=== PATIENT | female | born 1985 | race Caucasian/White ===

== ENCOUNTER 2021-01-25 12:39 | Emergency (ER) | payer OTHER, SELFPAY ==
[2021-01-25 12:40] VITALS: BP 119/67; PULSE 74; RESP 16; TEMP 37.1; O2SAT 100; BMI 27.3
[2021-01-25 12:48] VITALS: BP 119/67; PULSE 74; RESP 16; TEMP 37.1; O2SAT 100; BMI 27.4
[2021-01-25 13:29] VITALS: BP 119/67; PULSE 74; RESP 16; TEMP 37.1; O2SAT 100
--- NOTE | 2021-01-25 13:33 | HMH.EDUTC ---
[facility] – [place] Disposition Clinical Impression: Laceration Disposition: Home, Self-Care Condition on Discharge: Good Instructions: DI for Laceration Repair, DI for Laceration Repair -- Simple Additional Instructions: Suture instructions: You have required stitches today. Please read the following instructions so you know how to care for them: 1. Keep wound area dry for the first 24 hours. 2 May clean gently with mild soap and water, after 48 hours to prevent crusting over suture knots. 3. You may shower if your provider gives permission but do not take a bath until the skin is healed.. 4. Never leave a wet dressing or Band-Aid on your stitches as this allows bacteria to reach the area and may cause infection. Band-aids can cause the wound to sweat and not recommended to wear for long periods of time Watch for signs of infection: Increasing redness, tenderness or warmth around the suture site Unusual swelling around the site Appearance of pus around each suture or any red streaks Fever If you develop any of the above signs or symptoms of infection, Follow up with Family Physician immediately 5. Suture removal in _10-12___days 6. Return to [facility] or follow up with family doctor for removal. This can be done by any medical provider during regular hours on Saturday through Saturday, by appointment. Referrals: Lise Hathaway [Primary Care Provider] - As needed Time of Disposition: 13:34 Medical Decision Making - Sam Inquiry Pt receiving controlled substance: No Sam was queried for this patient: No Vital Signs: 01/25/21 12:40 01/25/21 12:48 01/25/21 13:29 Temperature 98.8 F 98.8 F 98.8 F Temperature Source Oral Oral Pulse Rate 74 Pulse Rate [Left Radial] 74 74 Respiratory Rate 16 16 16 Blood Pressure 119/67 Blood Pressure [Left Arm] 119/67 119/67 Blood Pressure Mean [Left Arm] 84 84 Blood Pressure Source [Left Arm] Automatic Cuff Automatic Cuff Blood Pressure Position [Left Arm] Sitting Sitting 02 Sat by Pulse Oximetry 100 100 Oxygen Delivery Method Room Air Room Air Medical Decision Narrative: wound irrigated well with saline and hibacleanse, wound edges approximated well [facility] [place] HPI - General Stated complaint: laceration of right hand finger Time Seen by Provider: 01/25/21 13:00 Mode of Arrival: Ambulatory Source of Information: Patient Limitations: No Limitations Description of Symptoms (Recalled from Triage Doc. by RN): laceration to R index finger, pt reports she cut it on glass approx 3 hours ago, states has had difficulty getting area to stop bleeding. - History of Present Illness Provider Complaint: Patient states that she was picking up a glass bottle from her yard when it busted in her hand causing laceration to her right index finger in the pad of the finger States that she was having a hard time controlling the bleeding so she came in unsure if it may need stitches or not - Related Data Home Medications Medication Instructions Recorded Confirmed montelukast 10 mg tablet 10 mg PO DAILY tab 12/30/20 01/25/21 sertraline 50 mg tablet 50 mg PO DAILY tab 12/30/20 01/25/21 Allergies Allergy/AdvReac Type Severity Reaction Status Date / Time Sulfa (Sulfonamide Allergy Severe tounge Verified 12/30/20 16:06 Antibiotics) swelling sulfamethoxazole Allergy Severe swelling Verified 12/30/20 16:06 [From Bactrim] trimethoprim [From Bactrim] Allergy Severe swelling Verified 12/30/20 16:06 - Worker's Comp Is this a Worker's Comp case?: No [facility] History - Hepatitis A Screen Drug use history?: No High risk sexual behaviors?: No History of sexually transmitted infection?: No Currently employed?: No Childcare worker?: No Do you have indoor plumbing?: Yes Do you have electricity?: Yes Attestation statement:: This patient has been screened for Hepatitis A risk factors. I have reviewed the patient's past medical history: Yes Medical History: Reports:: Depression Other Surger
== END 2021-01-25 13:45 | disposition home or self-care (01) ==
PROVIDERS: Emergency Provider Nurse Practitioner; PCP Physician Assistant
DX: S61.210A Laceration without foreign body of right index finger without damage to nail, initial encounter (principal); W25.XXXA Contact with sharp glass, initial encounter; Y92.017 Garden or yard in single-family (private) house as the place of occurrence of the external cause; F33.1 Major depressive disorder, recurrent, moderate
CPT/HCPCS: 12001; 99202; G0463

== ENCOUNTER 2021-04-02 10:32 | Outpatient (CLI) | payer OTHER, SELFPAY ==
[2021-04-02] VITALS (8 sets, daily range): BP systolic 101–123; BP diastolic 63–87; PULSE 63–83; RESP 16; TEMP 37.3; O2SAT 96–98
== END 2021-04-02 12:50 | disposition home or self-care (01) ==
PROVIDERS: PCP Family Medicine; Visit Provider Family Medicine
DX: U07.1 COVID-19 (principal)
CPT/HCPCS: 96365

== ENCOUNTER 2021-04-13 18:54 | Emergency (ER) | payer OTHER, SELFPAY ==
[2021-04-13 18:56] VITALS: BP 128/81; PULSE 75; RESP 16; TEMP 36.8; O2SAT 100; BMI 28.0
--- NOTE | 2021-04-13 20:14 | XR_ITS ---
PROCEDURE INFORMATION: Exam: XR Left Hand Exam date and time: 04/13/2021 8:14 PM Age: 36 years old Clinical indication: Injury or trauma; Other: Injured left 5th (pinky) finger while walking dog. ; Blunt trauma (contusions or hematomas); Little finger; Patient HX: Injured left 5th (pinky finger while walking dog. Patient tried to remove rings using soap and cold water and was unsuccessful. ; Additional info: Pain TECHNIQUE: Imaging protocol: XR Left hand. Views: 3 or more views. COMPARISON: No relevant prior studies available. FINDINGS: Bones/joints: Mildly comminuted fracture of the distal aspect of the middle phalanx of the 5th ray which is diastased up to 2 mm and may extend to the articular surface. Soft tissues: Normal. IMPRESSION: Mildly comminuted fracture of the distal aspect of the middle phalanx of the 5th ray which is diastased up to 2 mm and may extend to the articular surface.
[2021-04-13 20:16] VITALS: PULSE 75; RESP 16; TEMP 36.8; O2SAT 100; BMI 27.9
--- NOTE | 2021-04-13 20:49 | HMH.EDUTC ---
[facility] [place] Impression: Finger fracture Qualifiers: Encounter type: initial encounter Finger: little finger Fracture type: closed Phalanx: unspecified phalanx Fracture alignment: displaced Laterality: left Qualified Code(s): S62.607A - Fracture of unspecified phalanx of left little finger, initial encounter for closed fracture Disposition: Home, Self-Care Condition on Discharge: Good Instructions: DI for Finger Fracture, How To Perform RICE (Rest, Ice, Compress, Elevate) Additional Instructions: *RICE, Rest the extremity, Ice 15-20 minutes 3-4 times daily, Compress- wear the ankit wrap as discussed as much as possible to help reduce swelling and pain, Elevate the extremity when at rest *Ankit wrap is for support and help control swelling, use it except in the shower. Be sure that is not to tight but not to loose either *Elevate when resting *Ibuprofen every 6-8 hours as needed for pain an inflammation. If need something more can take Tylenol in between doses of Ibuprofen to help Immediately follow up with your family doctor for new or worsening of symptoms, or no noticeable improvement over the next 3-[address] Jeronimo office in the morning at 10am Referrals: Antwan Gonzales [Primary Care Provider] - As needed Delmer Jeronimo MD [Staff Physician] - (Call the office tomorrow at 10am) Time of Disposition: 21:07 Medical Decision Making - Sam Inquiry Pt receiving controlled substance: No Sam was queried for this patient: No Vital Signs: 04/13/21 18:56 04/13/21 20:16 04/13/21 21:15 Temperature 98.2 F 98.2 F 0 F L Temperature Source Oral Oral Pulse Rate 0 L Pulse Rate [Left Radial] 75 75 Respiratory Rate 16 16 0 L Blood Pressure 0/0 L Blood Pressure [Left Arm] 128/81 Blood Pressure Mean [Left Arm] 96 Blood Pressure Source [Left Arm] Automatic Cuff Blood Pressure Position [Left Arm] Sitting 02 Sat by Pulse Oximetry 100 100 Oxygen Delivery Method Room Air Orders (Tests/Meds): ED MEDICATIONS Discontinued Medications Generic Name Dose Route Start Last Admin Trade Name Freq PRN Reason Stop Dose Admin Ibuprofen 400 mg 04/13/21 20:55 04/13/21 20:57 Ibuprofen 400 Mg Tablet PO 04/13/21 20:56 400 mg ONCE ONE Administration - Radiology Data #1 Image(s): Hand Image Reviewed: Yes I have reviewed radiologist's interpretation IMPRESSION: Mildly comminuted fracture of the distal aspect of the middle phalanx of the 5th ray which is diastased up to 2 mm and may extend to the articular surface. - Physician Consults Physician Consulted: Dr Jeronimo Time: 21:02 Reason -: Orthopedic Eval/Care Comment/Response: Spoke with Dr Jeronimo and he viewed xray and advised to place her in finger splint and have her call the office tomorrow at 10 am Medical Decision Narrative: Patient holding hand in cupping position initially upon exam with rings on ring finger, rings removed Upon placing finger splint patient able to lay hand out flat on table Finger with out difficulty splint placed and secured with [place]an and finger splint patient able to move finger and good cap refill before and after placement denies numbness [facility] [place] - General Stated complaint: [id number] inj to little finger left hand Time Seen by Provider: 04/13/21 20:49 Mode of Arrival: Ambulatory Source of Information: Patient Limitations: No Limitations Description of Symptoms (Recalled from Triage Doc. by RN): pt was holding onto a dog harness and it pulled so that her L pinkie is bent and curled up. pt is unable to flatten her hand out. HEENT Symptoms (Recalled from RN notes): No Resp Symptoms (Recalled from RN notes): No Skin Symptoms (Recalled from RN notes): No MS Symptoms (Recalled from RN notes): Yes (L little finger pain) Functional Status (Recalled from RN notes): na - History of Present Illness Provider Complaint: Patient states that she was opening her door and her dog tried to run in the house and s
[2021-04-13 21:15] VITALS: BP 0/0; PULSE 0; RESP 0; TEMP -17.7; TEMP 0
== END 2021-04-13 21:17 | disposition home or self-care (01) ==
PROVIDERS: Emergency Provider Nurse Practitioner; PCP Family Medicine
DX: S62.607A Fracture of unspecified phalanx of left little finger, initial encounter for closed fracture (principal); Z88.2 Allergy status to sulfonamides
CPT/HCPCS: 73130; 99202; G0463

== ENCOUNTER → 2021-04-14 14:08 | Outpatient (CLI) | payer OTHER, SELFPAY ==
--- NOTE | 2021-04-14 14:12 | XR_ITS ---
PROCEDURE: XR FINGER LT MIN 2V CLINICAL INDICATION: LEFT SMALL DIGIT FX; remove splint COMPARISON: CR XR HAND LT MIN 3V from 04/13/2021 FINDINGS: Nondisplaced fracture involves the distal shaft of the middle phalanx of the 5th finger with good alignment. Previously noted diastasis of the fracture fragment is less apparent with good alignment on the lateral view. The joint spaces are well-preserved. No significant degenerative/arthritic changes. No erosive changes evident. Other findings:None. IMPRESSION: Good alignment middle phalanx fracture of the 5th finger Dictated by: Kieran Walker MD 04/14/2021 14:31 Kieran Walker MD in [place] 04/14/2021 14:31
== END ==
PROVIDERS: PCP Family Medicine; Visit Provider Orthopaedic Surgery
DX: S62.657A Nondisplaced fracture of middle phalanx of left little finger, initial encounter for closed fracture (principal)
CPT/HCPCS: 73140

== ENCOUNTER → 2021-07-18 15:17 | Outpatient (POV) | payer OTHER, SELFPAY | PROVIDERS: Visit Provider Dermatology | DX: Z00.00 Encounter for general adult medical examination without abnormal findings (principal) ==

== ENCOUNTER → 2021-09-19 09:10 | Outpatient (POV) | payer OTHER, SELFPAY | PROVIDERS: Visit Provider Dermatology | DX: Z00.00 Encounter for general adult medical examination without abnormal findings (principal) ==

== ENCOUNTER 2021-11-14 19:35 | Emergency (ER) | payer OTHER, SELFPAY ==
[2021-11-14 20:30] VITALS: BP 129/81; PULSE 76; RESP 18; TEMP 36.7; O2SAT 99; BMI 29.7
[2021-11-14 20:49] LABS: Strep Scrn Group A (Rapid) Negative (Negative)
--- NOTE | 2021-11-14 21:09 | HMH.EDUTC ---
[facility] [place] Clinical Impression: Pharyngitis Qualifiers: Pharyngitis/tonsillitis etiology: unspecified etiology Qualified Code(s): J02.9 - Acute pharyngitis, unspecified Left otitis media Qualifiers: Otitis media type: suppurative Chronicity: acute Recurrence: non-recurrent Spontaneous tympanic membrane rupture: without spontaneous rupture Qualified Code(s): H66.002 - Acute suppurative otitis media without spontaneous rupture of ear drum, left ear Disposition: Home, Self-Care Condition on Discharge: Good Instructions: Sore Throat, DI for Pharyngitis/Tonsillopharyngitis -- Adult Additional Instructions: Take the medications as directed. Follow up with your regular doctor. GO TO THE ER FOR ANY WORSENING SYMPTOMS Prescriptions: Pseudoephedrine HCl 30 mg PO Q6HP PRN #30 tab PRN Reason: Congestion Transmission Status: Received by [id number] methylPREDNISolone [Medrol] 4 mg PO DIRECTED 6 Days #21 packet Transmission Status: Received by [id number] Azithromycin [Z-Eric 250mg Tab*] 250 mg PO UD DOSE PK #6 tab Transmission Status: Received by [id number] Referrals: Antwan Gonzales [Primary Care Provider] - Time of Disposition: 21:17 Medical Decision Making - Medical Records Medical records reviewed: No: I reviewed the patient's medical records. - Sam Inquiry Pt receiving controlled substance: No Vital Signs: 11/14/21 20:30 11/14/21 21:18 Temperature 98.0 F 98.0 F Temperature Source Oral Pulse Rate 76 Pulse Rate [Left Radial] 76 Respiratory Rate 18 18 Blood Pressure 129/81 Blood Pressure [Right Arm] 129/81 Blood Pressure Mean [Right Arm] 97 02 Sat by Pulse Oximetry 99 - Lab Data Lab results reviewed: Yes: I reviewed the patient's lab results. Lab Results 11/14/21 20:28: Group A Strep Rapid Negative Orders (Tests/Meds): ORDERS Category Date Time Status Strep Screen Confirmation Stat Micro 11/14/21 20:28 Received [facility] [place] - General Stated complaint: sore throat, L ear ache,cough Time Seen by Provider: 11/14/21 21:09 Mode of Arrival: Ambulatory HEENT Symptoms (Recalled from RN notes): Yes Resp Symptoms (Recalled from RN notes): Yes Skin Symptoms (Recalled from RN notes): No MS Symptoms (Recalled from RN notes): No Functional Status (Recalled from RN notes): wnl - History of Present Illness Provider Complaint: She c/o sore throat and left ear pain for the past 3 days. She had influenza around 2 weeks ago and she got better from that, but her ear continued to hurt. Then she started having the sore throat 3 days ago. - Related Data Home Medications Medication Instructions Recorded Confirmed montelukast 10 mg tablet 10 mg PO DAILY tab 12/30/20 04/14/21 cetirizine 10 mg capsule 10 mg PO DAILY PRN 09/07/21 09/07/21 triamcinolone acetonide 55 mcg 1 spray INTRANASAL DAILY 09/07/21 09/07/21 nasal spray aerosol Previous Rx's Medication Instructions Recorded Azithromycin [Z-Eric 250mg Tab*] 250 mg PO UD DOSE PK #6 tab 11/14/21 Pseudoephedrine HCl 30 mg PO Q6HP PRN #30 tab 11/14/21 methylPREDNISolone [Medrol] 4 mg PO DIRECTED 6 Days #21 11/14/21 packet Allergies Allergy/AdvReac Type Severity Reaction Status Date / Time Sulfa (Sulfonamide Allergy Severe tounge Verified 11/14/21 20:35 Antibiotics) swelling sulfamethoxazole Allergy Severe swelling Verified 11/14/21 20:35 [From Bactrim] trimethoprim [From Bactrim] Allergy Severe swelling Verified 11/14/21 20:35 - Worker's Comp Is this a Worker's Comp case?: No Is this an [facility] Worker's Comp?: No Is this a [place] Worker's Comp?: No H History - Hepatitis A Screen Drug use history?: No High risk sexual behaviors?: No History of sexually transmitted infection?: No Currently employed?: No Childcare worker?: No Do you have indoor plumbing?: Yes Do you have electricity?: Yes Attestation statement:: This patient has been screened for Hepatiti
[2021-11-14 21:18] VITALS: BP 129/81; PULSE 76; RESP 18; TEMP 36.7
== END 2021-11-14 21:22 | disposition home or self-care (01) ==
PROVIDERS: Emergency Provider Nurse Practitioner Family; PCP Family Medicine
DX: H66.002 Acute suppurative otitis media without spontaneous rupture of ear drum, left ear (principal); J02.9 Acute pharyngitis, unspecified; F33.1 Major depressive disorder, recurrent, moderate; Z88.2 Allergy status to sulfonamides; Z79.899 Other long term (current) drug therapy
CPT/HCPCS: 87430; 99212; G0463

== ENCOUNTER 2024-07-26 10:10 | Emergency (ER) | payer OTHER, SELFPAY ==
--- NOTE | 2024-07-26 10:49 | ED_ITS ---
Discharge Plan Disposition Patient Disposition: Home, Self-Care Condition: Good Prescriptions Prescriptions: New oseltamivir [Tamiflu] 75 mg capsule 75 mg PO BID 5 Days Qty: 10 0RF [id number] [Bromfed DM] 2-30-10 mg/5 mL Syrup 5 ml PO Q6H PRN (Reason: Cough) Qty: 240 0RF ondansetron 4 mg Tablet,Disintegrating 4 mg PO Q8H PRN (Reason: Nausea) Qty: 12 0RF No Action montelukast 10 mg tablet 10 mg PO DAILY Zyrtec 10 mg capsule 10 mg PO DAILY PRN triamcinolone acetonide [Nasacort Allergy] 55 mcg aerosol,spray 1 spray INTRANASAL DAILY Rx Instructions: administer into each nostril azithromycin 250 MG tablet 250 mg PO UD DOSE PK Qty: 6 0RF Rx Instructions: Take two (2) tablets today, then one (1) tablet days #2 thru #5 pseudoephedrine HCl 30 MG tablet 30 mg PO Q6HP PRN (Reason: Congestion) Qty: 30 0RF methylprednisolone 4 MG tablets,dose pack 4 mg PO DIRECTED 6 Days Qty: 21 0RF Referrals Follow up/Referrals: Antwan Gonzales [Primary Care Provider] - See instructions Activity Restrictions/Add. Instructions Additional Instructions/Restrictions: Drink plenty of fluids. Take tylenol or ibuprofen for pain or fever. Take the medications as directed. Follow up with your regular doctor. GO TO THE ER FOR ANY WORSENING SYMPTOMS Clinical Impressions Clinical Impression: Influenza A Instructions Patient Instructions: DI for H1N1 Influenza -- Adult, Influenza, Oseltamivir, Ondansetron Print Language Print Language: Yi Discharge ED Provider: Yuniel Maurer [facility] General Stated complaint: flu exposure cough ba fever Time Seen by Provider: 07/26/24 10:49 Related Data Home Medications ?Medication ?Instructions ?Recorded ?Confirmed montelukast 10 mg tablet 10 mg PO DAILY Allergy symptoms 12/30/20 04/14/21 cetirizine 10 mg capsule (Zyrtec) 10 mg PO DAILY PRN 09/07/21 09/07/21 triamcinolone acetonide 55 mcg 1 spray intranasal DAILY 09/07/21 09/07/21 nasal spray aerosol (Nasacort Allergy) Previous Rx's ?Medication ?Instructions ?Recorded azithromycin 250 mg tablet 250 mg PO UD DOSE PK #6 tabs 11/14/21 methylprednisolone 4 mg tablets in 4 mg PO DIRECTED 6 days #21 11/14/21 a dose pack packets pseudoephedrine HCl 30 mg tablet 30 mg PO Q6HP PRN Congestion #30 11/14/21 tabs [id number] 5 ml PO Q6H PRN Cough #240 mL 07/26/24 2 mg-30 mg-10 mg/5 mL oral syrup (Bromfed DM) ondansetron 4 mg disintegrating 4 mg PO Q8H PRN Nausea #12 tabs 07/26/24 tablet oseltamivir 75 mg capsule (Tamiflu) 75 mg PO BID 5 days #10 caps 07/26/24 Allergies Allergy/AdvReac Type Severity Reaction Status Date / Time Sulfa (Sulfonamide Allergy Severe tounge Verified 11/14/21 20:35 Antibiotics) swelling sulfamethoxazole (From Allergy Severe swelling Verified 11/14/21 20:35 Bactrim) trimethoprim (From Bactrim) Allergy Severe swelling Verified 11/14/21 20:35 PFSH PFS Disclaimer: The information contained in this section may have been updated after the patient was seen, as this information can be updated by other users. Social History Smoking Status: Never smoker alcohol intake: never substance use type: denies use current occupational status: employed Travel in the last 8 weeks: None Have you lived/traveled outside [place] in past 30 days?: No Contact w/someone who lives/traveled outside [place] past 30 days?: No Exposure to someone with infectious disease in past 14 days?: Yes Do you have a fever (greater than 100.4 F or 38 C)?: No Have you tested positive for COVID-19: No Exposed to someone with COVID-19 in past 14 days?: No Do you have a sore throat?: No Do you have a cough?: No Do you have any weakness?: No Do you have any diarrhea?: No Are you experiencing any unusual bleeding?: No Do you have any muscle aches/pain?: Yes Do you have any abdominal pain?: No Are you experiencing loss of taste or smell?: No ROS Obtained: Yes All systems reviewed & no additional complaints except as documented Constitutional Constitutional: Reports chills and Reports fever(s) Eyes Eyes: Denies eye discharge ENT Ears, Nose, Mouth, and Throat: Reports as per HPI Cardiovascular Cardiovascular: Denies chest pain Respiratory Respiratory: Denies chest congestion and Reports cough Gastrointestinal Gastrointestingal: Reports nausea; Denies abdominal pain, constipation, cramping, diarrhea or vomiting Musculoskeletal Musculoskeletal: Denies arthralgias Integumentary/Breasts Skin/Breast: Denies rash Neurologic Neurologic: Denies paresthesias Physical Exam General General appearance: alert and in no apparent distress Eye Eye exam: Present normal appearance, PERRL and EOMI ENT ENT exam: Present mucous membranes moist and normal external ear exam Expanded ENT Exam External ear exam: Present normal external inspection TM/Canal exam: Bilateral TM: erythema and bulging Nose exam: Absent sinus tenderness Nasal speculum exam: Bilateral: normal Mouth exam: Present normal external inspection; Absent drooling Teeth exam: Present normal inspection Throat exam: Present tonsillar erythema and tonsillomegaly Neck Neck exam: Present normal inspection, full ROM and trachea midline; Absent tenderness, lymphadenopathy or thyromegaly Chest Chest inspection: Present normal inspection and symmetric chest wall rise; Absent tenderness or rash Respiratory Respiratory exam: Present normal lung sounds bilaterally; Absent respiratory distress, wheezes, stridor or accessory muscle use Cardiovascular Cardiovascular exam: Present regular rate, normal rhythm and normal heart sounds Abdominal Exam Abdominal exam: Present soft; Absent distention, tenderness, guarding, rebound or rigidity Extremities Exam Extremities exam: Present normal inspection, full ROM and normal capillary refill; Absent tenderness or calf tenderness Back Exam Back exam: Present normal inspection and full ROM; Absent tenderness Neurological Exam Neurological exam: Present alert and oriented X3 Psychiatric Psychiatric exam: Present normal affect and normal mood Skin Skin exam: Present warm, dry, intact and normal color Lymphatic Lymphatic Findings: no adenopathy Medical Decision Making Medical Records Medical records reviewed: No I reviewed the patient's medical records. Screening: Per USPSTF and CDC recommendations, given the prevalence of disease in our region, it is our hospital?s policy to screen for HIV and viral Hepatitis for all patients aged 18 and over and those with ongoing risk factors. Sam Inquiry Pt receiving controlled substance: No Lab Data Lab results reviewed: Yes I reviewed the patient's lab results.
[2024-07-26 10:52] VITALS: BP 126/94; PULSE 95; RESP 18; TEMP 37.6; O2SAT 96; BMI 24.8
[2024-07-26 11:02] LABS: UTC Influenza A Antigen Positive (Negative); UTC Influenza B Antigen Negative (Negative)
[2024-07-26 11:29] VITALS: BP 126/94; PULSE 95; RESP 18; TEMP 37.6
== END 2024-07-26 11:30 | disposition home or self-care (01) ==
PROVIDERS: Emergency Provider Nurse Practitioner Family; PCP Family Medicine
DX: J10.1 Influenza due to other identified influenza virus with other respiratory manifestations (principal); R50.9 Fever, unspecified; R05.9 Cough, unspecified; M54.9 Dorsalgia, unspecified; Z20.828 Contact with and (suspected) exposure to other viral communicable diseases
CPT/HCPCS: 87804; 99212; G0381

== ENCOUNTER 2024-09-16 07:45 | Outpatient (CLI) | payer BC, SELFPAY ==
--- NOTE | 2024-09-16 07:49 | MM_ITS ---
PROCEDURE INFORMATION: Exam: Bilateral Screening 3D Mammography Exam date and time: 09/16/2024 8:00 AM Age: 39 years old Clinical indication: Screening mammogram TECHNIQUE: Imaging protocol: Bilateral Screening tomosynthesis and 2D mammography including computer-aided detection (CAD) when performed. COMPARISON: DMDBAV DIG MAMM-DX BILAT W/ADD VIEWS 05/14/2012 1:07 PM FINDINGS: MAMMOGRAPHY: Breast composition: The breast tissue is extremely dense, which lowers the sensitivity of mammography. Mass: None. Architectural distortion: No new or suspicious architectural distortion. Calcifications: No new or suspicious calcifications are present Asymmetric density: No new or suspicious asymmetric density is present Skin thickening: None. Axillary adenopathy: None. IMPRESSION: No mammographic evidence of malignancy. Recommend annual screening mammography unless otherwise clinically indicated. ASSESSMENT: BI-RADS category 1: Negative.
== END 2024-09-16 23:59 | disposition home or self-care (01) ==
LOC: RAD 07:45
PROVIDERS: PCP Family Medicine; Visit Provider Obstetrics & Gynecology Gynecology
DX: Z12.31 Encounter for screening mammogram for malignant neoplasm of breast (principal)
CPT/HCPCS: 77063; 77067